=== PATIENT | male | born 1975 | race Hispanic/Latino ===

== ENCOUNTER 2022-08-07 15:29 | Emergency (ER) | payer SELFPAY ==
[~2022-08-07] VITALS: Ht 162.6 cm; Wt 81.6 kg
[2022-08-07 15:55] VITALS: BP 113/72; PULSE 85; RESP 16; TEMP 98.6; O2SAT 100
== END 2022-08-07 15:54 | disposition home or self-care (01) ==
LOC: ER 15:38
DX: Z48.02 Encounter for removal of sutures (principal); S61.511D Laceration without foreign body of right wrist, subsequent encounter; X58.XXXD Exposure to other specified factors, subsequent encounter
CPT/HCPCS: 99283